=== PATIENT | male | born 1990 | race Caucasian/White ===

== ENCOUNTER 2016-07-12 17:57 | Emergency (ER) | payer BC ==
[2016-07-12] MEDS ORDERED: Ondansetron 4 MG/2 ML SDV IVPUSH ONE ×2 (18:28→20:56)
[2016-07-12] MEDS ORDERED: Sodium Chloride 0.9% 1,000 ML IV ONE ×2 (18:28→20:56)
[2016-07-12 19:05] LABS: CHLORIDE,CL 104 mmol/L (98-110); SODIUM,NA 139 mmol/L (136-146)
[2016-07-12] MEDS ORDERED: Ketorolac 30 MG/ML SDV IVPUSH ONE (19:07)
--- NOTE | 2016-07-12 19:48 | EDM.PDOC ---
ED HPI GI/ABDOMINAL - General Chief Complaint: Gastrointestinal Problem Stated Complaint: VOMITING/SICK Time Seen by Provider: 07/12/16 19:45 Source of Information: Reports: Patient History Limitations: Reports: No limitations - History of Present Illness INITIAL COMMENTS - FREE TEXT/NARRATIVE: History of present illness: [25-year-old male presents with low-grade fever or, nausea, vomiting, and also diarrhea. Patient indicates it has gotten progressively worse over the last 24 hours and he is concerned since he has a 11-day-old baby at home. Patient indicates he has a toddler who was sick approximately 10 days ago with similar symptoms.] Review of systems: As per history of present illness and below otherwise all systems reviewed and negative. Past medical history: As per history of present illness and as reviewed below otherwise noncontributory. Surgical history: As per history of present illness and as reviewed below otherwise noncontributory. Social history: No reported history of drug or alcohol abuse. Family history: As per history of present illness and as reviewed below otherwise noncontributory. Physical exam: HEENT: Atraumatic, normocephalic, pupils reactive, negative for conjunctival pallor or scleral icterus, mucous membranes moist, throat clear, neck supple, nontender, trachea midline. Lungs: Clear to auscultation, breath sounds equal bilaterally, chest nontender. Heart: S1S2, regular, negative for clicks, rubs, or JVD. Abdomen: Soft, nondistended, nontender. Negative for masses or hepatosplenomegaly. Negative for costovertebral tenderness. Pelvis: Stable nontender. Genitourinary: Deferred. Rectal: Deferred. Extremities: Atraumatic, negative for cords or calf pain. Neurovascular unremarkable. Neuro: Awake, alert, oriented. Cranial nerves II through XII unremarkable. Cerebellum unremarkable. Motor and sensory unremarkable throughout. Exam nonfocal. CT of abdomen negative, nasal swab negative, mild leukocytosis noted which would be consistent with a viral syndrome as well as signs and symptoms upon presentation Diagnostics: [CBC, CMP, CT of abdomen and pelvis, nasal swab] Therapeutics: [IV, Zofran, Toradol] Impression: [Viral syndrome] Plan: [] Definitive disposition and diagnosis as appropriate pending reevaluation and review of above. - Related Data Allergies/ADRs: Allergies Allergy/AdvReac Type Severity Reaction Status Date / Time No Known Allergies Allergy Verified 07/12/16 18:27 Home Meds: Home Meds Ondansetron HCl [Zofran] 8 mg PO TID #15 tablet 07/12/16 [Rx] Past Medical History - Past Health History Medical/Surgical History: Denies Medical/Surgical History HEENT History: Reports: Impaired vision, Other (see below) Other HEENT History: wears contact Cardiovascular History: Reports: None Respiratory History: Reports: None Gastrointestinal History: Reports: None Genitourinary History: Reports: None Musculoskeletal History: Reports: None Neurological History: Reports: Seizure Psychiatric History: Reports: None Endocrine/Metabolic History: Reports: None Hematologic History: Reports: None Immunologic History: Reports: None Oncologic (Cancer) History: Reports: None Dermatologic History: Reports: None - Infectious Disease History Infectious Disease History: Reports: Chicken pox - Past Surgical History Head Surgeries/Procedures: Reports: None Cardiovascular Surgical History: Reports: None GI Surgical History: Reports: Appendectomy, Hernia repair/other Endocrine Surgical History: Reports: None Other Musculoskeletal Surgeries/Procedures:: surgery on fxs of R shoulder and L wrist and R hand. 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[employer]) ED ROS GENERAL - Review of Systems Review Of Systems: See Below (See history of present illness) ED EXAM, GI/ABD - Physical Exam Exam: See Below (The history of present illness) Course - Vital Signs Last Recorded V/S: Last Vital Signs Temp 37.7 C 07/12/16 20:56 Pulse 85 07/12/16 20:56 Resp 16 07/12/16 20:56 BP 110/49 L 07/12/16 20:56 Pulse Ox 96 07/12/16 20:56 - Orders/Labs/Meds Orders: Active Orders 24 hr Category Date Time Status Abdomen Pelvis w Cont [CT] Stat Exams 07/12/16 19:44 Taken Sodium Chloride 0.9% [Normal Saline] 1,000 ml Med 07/12/16 20:56 Active IV .BOLUS Medication Orders Sodium Chloride (Normal Saline) 1,000 mls @ 999 mls/hr IV .BOLUS ONE Stop: 07/12/16 21:56 Last Admin: 07/12/16 21:00 Dose: 999 mls/hr Labs: Laboratory Tests 07/12/16 07/12/16 Range/Units 18:38 18:38 WBC 13.58 H (4.0-11.0) K/uL RBC 5.94 H (4.50-5.90) M/uL Hgb 17.1 H (13.0-17.0) g/dL Hct 48.4 (38.0-50.0) % MCV 81.5 (80.0-98.0) fL MCH 28.8 (27.0-32.0) pg MCHC 35.3 (31.0-37.0) g/dL RDW Std Deviation 40.9 (28.0-62.0) fl RDW Coeff of [place] 14 (11.0-15.0) % Plt Count 166 (150-400) K/uL MPV 10.20 (7.40-12.00) fL Neut % (Auto) 91.3 H (48.0-80.0) % Lymph % (Auto) 4.1 L (16.0-40.0) % [place] % (Auto) 3.8 (0.0-15.0) % Eos % (Auto) 0.6 (0.0-7.0) % Baso % (Auto) 0.2 (0.0-1.5) % Neut # 12.4 H (1.4-5.7) K/uL Lymph # 0.6 (0.6-2.4) K/uL [place] # 0.5 (0.0-0.8) K/uL Eos # 0.1 (0.0-0.7) K/uL Baso # 0.0 (0.0-0.1) K/uL Nucleated RBC % 0.0 /100WBC Nucleated RBCs # 0 K/uL Sodium 139 (136-146) mmol/L Potassium 4.2 (3.5-5.1) mmol/L Chloride 104 (98-110) mmol/L Carbon Dioxide 24 (21-31) mmol/L BUN 18 (6.0-23.0) mg/dL Creatinine 1.0 (0.6-1.5) mg/dL Est Cr Clr Drug Dosing 139.84 mL/min Estimated GFR (MDRD) > 60.0 ml/min Glucose 103 (60-110) mg/dL Calcium 10.0 (8.8-10.8) mg/dL Total Bilirubin 1.0 (0.1-1.5) mg/dL AST 63 H (5-40) IU/L ALT 52 (8-54) IU/L Alkaline Phosphatase 116 (40-150) Total Protein 8.6 H (6.0-8.0) g/dL Albumin 5.0 (3.5-5.0) g/dL Globulin 3.6 H (2.0-3.5) g/dL Albumin/Globulin Ratio 1.4 (1.3-2.8) Meds: Medications Generic Name Dose Route Start Last Admin Trade Name Freq PRN Reason Stop Dose Admin Sodium Chloride 1,000 mls @ 999 mls/hr 07/12/16 20:56 07/12/16 21:00 Normal Saline IV 07/12/16 21:56 999 mls/hr .BOLUS ONE Administration Discontinued Medications Generic Name Dose Route Start Last Admin Trade Name Freq PRN Reason Stop Dose Admin Sodium Chloride 1,000 mls @ 999 mls/hr 07/12/16 18:28 07/12/16 19:04 Normal Saline IV 07/12/16 19:28 999 mls/hr STAT ONE Administration Iopamidol 100 ml 07/12/16 20:37 07/12/16 20:38 Isovue-370 (76%) IV 07/12/16 20:38 100 ml ONETIME STA Administration Ketorolac Tromethamine 30 mg 07/12/16 19:07 07/12/16 19:16 Toradol IVPUSH 07/12/16 19:08 30 mg ONETIME ONE Administration Ondansetron HCl 8 mg 07/12/16 18:28 07/12/16 19:04 Zofran IVPUSH 07/12/16 18:29 8 mg ONETIME ONE Administration Ondansetron HCl 4 mg 07/12/16 20:56 07/12/16 21:02 Zofran IVPUSH 02/27/17 20:57 4 mg ONETIME ONE Administration Departure - Departure Time of Disposition: 21:20 Disposition: Home, Self-Care 01 Condition: good Clinical Impression: Gastroenteritis Prescriptions: Ondansetron HCl [Zofran] 8 mg PO TID #15 tablet Instructions: Viral Gastroenteritis, Adult, [id number] Forms: ED Department Discharge Additional Instructions: The following information is given to patients seen in the emergency department who are being discharged to home. This information is to outline your options for follow-up care. We provide all patients seen in our emergency department with a follow-up referral. The need for follow-up, as well as the timing and circumstances, are variable depending upon the specifics of your emergency department visit. If you don't have a primary care physician on staff, we will provide you with a referral. We always advise you to contact your personal physician following an emergency department visit to inform them of the circumstance of the visit and for follow-up with them and/or the need for any referrals to a consulting specialist. The emergency department will also refer you to a specialist when appropriate. This referral assures that you have the opportunity for follow-up care with a specialist. All of these measure are taken in an effort to provide you with optimal care, which includes your follow-up. Under all circumstances we always encourage you to contact your private physician who remains a resource for coordinating your care. When calling for follow-up care, please make the office aware that this follow-up is from your recent emergency room visit. If for any reason you are refused follow-up, please contact the [facility] Emergency Department at and asked to speak to the emergency department charge nurse. Followup the primary care provider one today Please take nausea medicine as needed please hydrate as possible Turned ED as needed as discussed - My Orders Last 24 Hours: My Active Orders 07/12/16 19:44 Abdomen Pelvis w Cont [CT] Stat 07/12/16 20:56 Sodium Chloride 0.9% [Normal Saline] 1,000 ml IV .BOLUS - Assessment/Plan Last 24 Hours: My Active Orders 07/12/16 19:44 Abdomen Pelvis w Cont [CT] Stat 07/12/16 20:56 Sodium Chloride 0.9% [Normal Saline] 1,000 ml IV .BOLUS
[2016-07-12] MEDS ORDERED: Iopamidol 755 MG/ML 50 ML Bottle IV STA (20:37)
[2016-07-12 21:40] VITALS: BP 136/66
--- NOTE | 2016-07-13 15:56 | CT ---
EXAM DATE: 07/12/16 PATIENT'S AGE: 25 Patient: MATTI ÁLVAREZ Facility: [place], [place] Site . Site : 1990 Study: CT Abdomen/Pelvis [id number] w/cont-07/12/2016 8:53:21 PM Ordering Physician: Doctor Garcia Final Report: INDICATION: Abdominal pain, Vomiting, Diarrhea. CT ABDOMEN AND PELVIS WITH CONTRAST TECHNIQUE: Multidetector CT imaging was performed through the abdomen and pelvis following intravenous contrast administration using 100mL Isovue 370. Coronal and sagittal reconstructions were generated. COMPARISON: 05/21/2014 CT abd/pelvis. FINDINGS: Included portions of the lower chest show the lung bases to be clear. The liver, spleen, gallbladder, pancreas, adrenals, and kidneys show no significant findings. Bowel loops are of normal caliber and demonstrate no definite wall thickening. The appendix is surgically absent. Mild prominence of the colon wall is felt due to nondistention. No free fluid or free air is identified. The abdominal aorta appears normal. No abnormally enlarged lymph nodes are seen. The urinary bladder, prostate, and seminal vesicles are within normal limits. Visualized bones show no significant findings. IMPRESSION: No acute abnormality identified. No cause for the patient`s symptoms is evident. NAJMA OSBORNE MD [employer] [facility] Dictated by: Scooby Osborne MD @ 07/12/2016 21:13:21 (Electronic Signature) Report Signed by Proxy and Original Signed Document filed in the Medical Record. MTDD
== END 2016-07-12 21:38 | disposition home or self-care (01) ==
LOC: MW.ED 17:57
DX: K52.9 Noninfective gastroenteritis and colitis, unspecified (principal); B34.9 Viral infection, unspecified; Z90.49 Acquired absence of other specified parts of digestive tract
CPT/HCPCS: 36415; 74177; 80053; 85025; 87804; 96361; 96374; 96376; 99284; J1885; J2405; J7040; Q9967

== ENCOUNTER 2016-10-19 14:58 | Emergency (ER) | payer BC ==
--- NOTE | 2016-10-19 16:11 | EDM.PDOC ---
ED HPI GENERAL MEDICAL PROBLEM - General Chief Complaint: Lower Extremity Injury/Pain Stated Complaint: ANKLE Time Seen by Provider: 10/19/16 16:10 Source of Information: Reports: Patient History Limitations: Reports: No Limitations - History of Present Illness INITIAL COMMENTS - FREE TEXT/NARRATIVE: HISTORY AND PHYSICAL: 26-year-old gentleman presents after having "rolled" his left ankle History of Present Illness: [This incident occurred 3 and half hours prior to coming to the ER today.] Review of Systems: As per history of present illness and below otherwise all systems reviewed and negative. Past medical history: As per history of present illness and as reviewed below otherwise noncontributory. Surgical history: As per history of present illness and as reviewed below otherwise noncontributory. Social history: No reported history of drug or alcohol abuse. Family history: As per history of present illness and as reviewed below otherwise noncontributory. Physical exam: Alert and oriented gentleman answering questions appropriately HEENT: Atraumatic, normocehpalic, pupils reactive, negative for conjunctival pallor or scleral icterus, mucous membranes moist, throat clear, neck supple, nontender, trachea midline. Lungs: Clear to auscultation, breath sounds equal bilaterally, chest non tender. Heart: S1S2, regular, negative for clicks, rubs, or JVD. Abdomen: Soft, nondistended, nontender. Negative for masses or hepatossplenmegaly. Negative for costovertebral tenderness. Pelvis: Stable nontender. Genitourinary: Deferred. Rectal: Deferred Extremities: Edema to the lateral malleolus on left ankle pulses are intact sensation intact, negative for cords or calf pain. Neurovascular unremarkable. Neuro: Awake, alert, oriented. Cranial nerves II through XII unremarkable. Cerebellum unremarkable. Motor and sensory unremarkable throughout. Exam nonfocal. Diagnostics: []X-ray left ankle with chip fracture of the taler dome Therapeutics: [walker boot / crutches] Impression: [Chip fracture of left taler dome] Plan: [walker boot / crutches Hydrocodone/APAP 5/325 1 tab tid prn pain #20] Definitive disposition and diagnosis as appropriate pending reevaluation and review of above. Onset: Today, Sudden Duration: Hour(s): (3-4) Location: Reports: Lower Extremity, Left Quality: Reports: Ache, Throbbing Severity: Moderate Improves with: Reports: Cold Therapy Context: Reports: Activity (Rolled his ankle) Left Ankle Pain Score (Numeric/FACES): 8 - Related Data Allergies Allergy/AdvReac Type Severity Reaction Status Date / Time No Known Allergies Allergy Verified 07/12/16 18:27 Past Medical History - Past Health History Medical/Surgical History: Denies Medical/Surgical History HEENT History: Reports: Impaired Vision, Other (See Below) Other HEENT History: wears contact Cardiovascular History: Reports: None Respiratory History: Reports: None Gastrointestinal History: Reports: None Genitourinary History: Reports: None Musculoskeletal History: Reports: None Neurological History: Reports: Seizure Psychiatric History: Reports: None Endocrine/Metabolic History: Reports: None Hematologic History: Reports: None Immunologic History: Reports: None Oncologic (Cancer) History: Reports: None Dermatologic History: Reports: None - Infectious Disease History Infectious Disease History: Reports: Chicken Pox - Past Surgical History Head Surgeries/Procedures: Reports: None Cardiovascular Surgical History: Reports: None GI Surgical History: Reports: Appendectomy, Hernia, Inguinal, Hernia Repair/ Other Endocrine Surgical History: Reports: None Other Musculoskeletal Surgeries/Procedures:: surgery on fxs of R shoulder and L wrist and R hand. knee scope when he was 10 y.o Social & Family History - Family History Family Medical History: Noncontributory Neurological: Reports: Seizure - Tobacco Use Smoking Status *Q: Never Smoker Second Hand Smoke Exposure: No - Alcohol Use Days Per Week of Alcohol Use: 4 Number of Drinks Per Day: 2 Total Drinks Per Week: 8 - Recreational Drug Use Recreational Drug Use: No - Living Situation & Occupation Living situation: Reports: with Significant Other Occupation: Employed Review of Systems - Review of Systems Review Of Systems: ROS reveals no pertinent complaints other than HPI. ED EXAM, GENERAL - Physical Exam Exam: See Below Course - Vital Signs Last Recorded V/S: Last Vital Signs Temp 36.6 C 10/19/16 15:55 Pulse 67 10/19/16 15:55 Resp 18 10/19/16 15:55 BP 127/97 H 10/19/16 15:55 Pulse Ox - Orders/Labs/Meds Orders: Active Orders 24 hr Category Date Time Status Cooling Warming Measures [RC] ASDIRECTED Care 10/19/16 16:09 Active Splinting [RC] ASDIRECTED Care 10/19/16 16:46 Ordered Ice Pack [Ice Therapy] [OM.PC] Stat Oth 10/19/16 16:09 Ordered Departure - Departure Time of Disposition: 16:53 Disposition: Home, Self-Care 01 Condition: good Clinical Impression: Fracture of ankle, left, closed Qualifiers: Encounter type: initial encounter Qualified Code(s): S82.892A - Other fracture of left lower leg, initial encounter for closed fracture - Discharge Information Instructions: Cast or Splint Care, [id number], Pain Medicine Instructions, [id number] Referrals: PCP,None [Primary Care Provider] - Rashmi Marsh MD [Physician] - Forms: ED Department Discharge Additional Instructions: The following information is given to patients seen in the emergency department who are being discharged to home. This information is to outline your options for follow-up care. We provide all patients seen in our emergency department with a follow-up referral. The need for follow-up, as well as the timing and circumstances, are variable depending upon the specifics of your emergency department visit. If you don't have a primary care physician on staff, we will provide you with a referral. We always advise you to contact your personal physician following an emergency department visit to inform them of the circumstance of the visit and for follow-up with them and/or the need for any referrals to a consulting specialist. The emergency department will also refer you to a specialist when appropriate. This referral assures that you have the opportunity for followup care with a specialist. All of these measure are taken in an effort to provide you with optimal care, which includes your followup. Under all circumstances we always encourage you to contact your private physician who remains a resource for coordinating your care. When calling for followup care, please make the office aware that this follow-up is from your recent emergency room visit. If for any reason you are refused follow-up, please contact the [facility] emergency department at and asked to speak to the emergency department charge nurse. Elevate and ice No weightbearing for 24 hours then minimal weightbearing use crutches Prescription was written for hydrocodone/APAP 5/325 one tablet 3 times a day when necessary pain #20 no refill Referral has been made to Dr. Rashmi Marsh [facility] [address] [place] [address] - My Orders Last 24 Hours: My Active Orders 10/19/16 16:09 Cooling Warming Measures [RC] ASDIRECTED Ice Pack [Ice Therapy] [OM.PC] Stat 10/19/16 16:46 Splinting [RC] ASDIRECTED - Assessment/Plan Last 24 Hours: My Active Orders 10/19/16 16:09 Cooling Warming Measures [RC] ASDIRECTED Ice Pack [Ice Therapy] [OM.PC] Stat 10/19/16 16:46 Splinting [RC] ASDIRECTED
--- NOTE | 2016-10-19 16:31 | CR ---
EXAMINATION: Left ankle HISTORY: Pain COMPARISON: None TECHNIQUE: 3 views FINDINGS/IMPRESSION: There is a nondisplaced chip fracture involving the lateral aspect of the talar dome. The remaining osseous structures and joint spaces appear intact with normal bone mineralizati on. Moderate soft tissue swelling overlies the lateral malleolus and dorsal aspect of the ankle.
[2016-10-19 17:28] VITALS: BP 125/87
== END 2016-10-19 17:23 | disposition home or self-care (01) ==
LOC: MW.ED 14:58
DX: S92.145A Nondisplaced dome fracture of left talus, initial encounter for closed fracture (principal); X50.9XXA Other and unspecified overexertion or strenuous movements or postures, initial encounter; Z90.49 Acquired absence of other specified parts of digestive tract; Z98.890 Other specified postprocedural states
CPT/HCPCS: 73610-26-LT; 73610-LT; 99283

== ENCOUNTER 2016-12-13 13:32 | Emergency (ER) | payer BC ==
--- NOTE | 2016-12-13 14:15 | EDM.PDOC ---
ED HPI GENERAL MEDICAL PROBLEM - General Chief Complaint: Neurological Problem Stated Complaint: SEIZURE Time Seen by Provider: 12/13/16 13:55 Source of Information: Reports: Patient History Limitations: Reports: No Limitations - History of Present Illness INITIAL COMMENTS - FREE TEXT/NARRATIVE: HISTORY AND PHYSICAL: History of present illness: [pt comes to the ER post-ictal. States that he was at work about 1 hour ago when he experienced a seizure. Has a known seizure disorder which he has been seen for several times in this emergency room. He has been out of his Keppra for the past 2-3 weeks, and is due for follow-up with Dr. Wright. Today he was up in a bucket approximately 75 feet the air when he experienced his seizure. This was witnessed by several coworkers on the ground. When patient woke up he was looking through the grades of the truck onto the ground. This is made him feel anxious that he may experience a seizure and hurt himself seriously. Postictal symptoms are consistent with healing tired, heaviness in his extremities, and having had bladder incontinence. He has no other complaints or concerns today. Denies fever, chills, chest pain shortness of breath difficulty breathing abdominal pain nausea and vomiting.] Review of systems: As per history of present illness and below otherwise all systems reviewed and negative. Past medical history: As per history of present illness and as reviewed below otherwise noncontributory. Surgical history: As per history of present illness and as reviewed below otherwise noncontributory. Social history: No reported history of drug or alcohol abuse. Family history: As per history of present illness and as reviewed below otherwise noncontributory. Physical exam: HEENT: Atraumatic, normocephalic. PERRLA. EOMI. No nystagmus. Oral mucous membranes moist, throat clear. Neck supple. Lungs: Clear to auscultation, breath sounds equal bilaterally. Heart: S1S2, regular rate and rhythm.. Abdomen: Soft, nondistended, nontender. Negative for costovertebral tenderness. Pelvis: Stable nontender. Genitourinary: Deferred. Rectal: Deferred. Extremities: Atraumatic, negative for cords or calf pain. Strength is 4-5 and equal bilaterally to upper and lower extremities. Neurovascular unremarkable. Neuro: Awake, alert, oriented. Cranial nerves II through XII unremarkable. Motor and sensory unremarkable throughout. Exam nonfocal. Impression: [Seizure disorder] Plan: [Patient is given a prescription for Keppra 500 mg #180 sig 3 tabs by mouth twice a day 0 refills, follow-up with Dr. Wright in the next couple of weeks for your regular 6 month checkup. He is in agreement with today's plan. All of his questions are answered and concerns are addressed.] Definitive disposition and diagnosis as appropriate pending reevaluation and review of above. - Related Data Allergies Allergy/AdvReac Type Severity Reaction Status Date / Time No Known Allergies Allergy Verified 07/12/16 18:27 Home Meds: Home Meds levETIRAcetam [Keppra] 1,500 mg PO BID 12/13/16 [History] levETIRAcetam [Keppra] 1,500 mg PO BID #180 tablet 12/13/16 [Rx] Past Medical History - Past Health History Medical/Surgical History: Denies Medical/Surgical History HEENT History: Reports: Impaired Vision, Other (See Below) Other HEENT History: wears contact Cardiovascular History: Reports: None Respiratory History: Reports: None Gastrointestinal History: Reports: None Genitourinary History: Reports: None Musculoskeletal History: Reports: None Neurological History: Reports: Seizure Psychiatric History: Reports: None Endocrine/Metabolic History: Reports: None Hematologic History: Reports: None Immunologic History: Reports: None Oncologic (Cancer) History: Reports: None Dermatologic History: Reports: None - Infectious Disease History Infectious Disease History: Reports: Chicken Pox - Past Surgical History Head Surgeries/Procedures: Reports: None Cardiovascular Surgical History: Reports: None GI Surgical History: Reports: Appendectomy, Hernia, Inguinal, Hernia Repair/ Other Endocrine Surgical History: Reports: None Other Musculoskeletal Surgeries/Procedures:: surgery on fxs of R shoulder and L wrist and R hand. knee scope when he was 10 y.o Social & Family History - Family History Family Medical History: Noncontributory Neurological: Reports: Seizure - Tobacco Use Smoking Status *Q: Never Smoker Second Hand Smoke Exposure: No - Caffeine Use Caffeine Use: Reports: Energy Drinks - Alcohol Use Days Per Week of Alcohol Use: 4 Number of Drinks Per Day: 2 Total Drinks Per Week: 8 - Recreational Drug Use Recreational Drug Use: No - Living Situation & Occupation Living situation: Reports: with Significant Other Occupation: Employed ED ROS GENERAL - Review of Systems Review Of Systems: ROS reveals no pertinent complaints other than HPI. - Physical Exam Exam: See Below Course - Vital Signs Last Recorded V/S: Last Vital Signs Temp 97.4 F 12/13/16 13:53 Pulse 90 12/13/16 14:42 Resp 15 12/13/16 14:42 BP 135/69 12/13/16 14:42 Pulse Ox 97 12/13/16 14:42 Departure - Departure Time of Disposition: 14:30 Disposition: Home, Self-Care 01 Condition: Good Clinical Impression: Seizure - Discharge Information Prescriptions: levETIRAcetam [Keppra] 1,500 mg PO BID #180 tablet Instructions: Seizure, Adult, [id number] Referrals: PCP,None [Primary Care Provider] - Forms: ED Department Discharge Additional Instructions: The following information is given to patients seen in the emergency department who are being discharged to home. This information is to outline your options for follow-up care. We provide all patients seen in our emergency department with a follow-up referral. The need for follow-up, as well as the timing and circumstances, are variable depending upon the specifics of your emergency department visit. If you don't have a primary care physician on staff, we will provide you with a referral. We always advise you to contact your personal physician following an emergency department visit to inform them of the circumstance of the visit and for follow-up with them and/or the need for any referrals to a consulting specialist. The emergency department will also refer you to a specialist when appropriate. This referral assures that you have the opportunity for follow-up care with a specialist. All of these measure are taken in an effort to provide you with optimal care, which includes your follow-up. Under all circumstances we always encourage you to contact your private physician who remains a resource for coordinating your care. When calling for follow-up care, please make the office aware that this follow-up is from your recent emergency room visit. If for any reason you are refused follow-up, please contact the [facility] emergency department at and asked to speak to the emergency department charge nurse. [facility] Specialty care- [facility] [address] [place] [address], [address] [place] [address] Wright in the next couple of weeks. Do not run out of your Keppra, and do not miss any doses. Return to ER as needed as discussed.
[2016-12-13 14:45] VITALS: BP 135/69
== END 2016-12-13 14:42 | disposition home or self-care (01) ==
LOC: MW.ED 13:32
DX: G40.909 Epilepsy, unspecified, not intractable, without status epilepticus (principal); Z90.49 Acquired absence of other specified parts of digestive tract
CPT/HCPCS: 99282

== ENCOUNTER 2017-01-07 12:53 | Emergency (ER) | payer BC ==
[2017-01-07] MEDS ORDERED: Bupivacaine 0.25% 10 ML SDV INJECT ONE (13:07)
--- NOTE | 2017-01-07 13:27 | EDM.PDOC ---
ED HPI GENERAL MEDICAL PROBLEM - General Chief Complaint: Lower Extremity Injury/Pain Stated Complaint: BIG TOE ON RT FOOT HURTS Time Seen by Provider: 01/07/17 12:57 - History of Present Illness INITIAL COMMENTS - FREE TEXT/NARRATIVE: HISTORY AND PHYSICAL: History of present illness: Patient 26-year-old white male presents with concern of ingrown toenail first digit of his right foot has been worse over the last several weeks particularly last several days he denies any other concern Review of systems: As per history of present illness and below otherwise all systems reviewed and negative. Past medical history: As per history of present illness and as reviewed below otherwise noncontributory. Surgical history: As per history of present illness and as reviewed below otherwise noncontributory. Social history: No reported history of drug or alcohol abuse. Family history: As per history of present illness and as reviewed below otherwise noncontributory. Physical exam: HEENT: Atraumatic, normocephalic, pupils reactive, negative for conjunctival pallor or scleral icterus, mucous membranes moist, throat clear, neck supple, nontender, trachea midline. Lungs: Clear to auscultation, breath sounds equal bilaterally, chest nontender. Heart: S1S2, regular, negative for clicks, rubs, or JVD. Abdomen: Soft, nondistended, nontender. Negative for masses or hepatosplenomegaly. Negative for costovertebral tenderness. Pelvis: Stable nontender. Genitourinary: Deferred. Rectal: Deferred. Extremities: Patient has a swelling erythema and obvious ingrown toenail involving the lateral aspect of the first digit. There is also evidence of tinea pedis. Neuro: Awake, alert, oriented. Cranial nerves II through XII unremarkable. Cerebellum unremarkable. Motor and sensory unremarkable throughout. Exam nonfocal. Diagnostics: None Therapeutics: Patient was anesthetized via digital block with 0.5% Marcaine this wound was soaked irrigated and the medial third of the nail of the first digit was removed in its entirety. Wound was irrigated and dressed with bacitracin and occlusive dressing. Impression: #1 ingrown toenail status post excision Definitive disposition and diagnosis as appropriate pending reevaluation and review of above. R Great Toe Pain Score (Numeric/FACES): 6 - Related Data Allergies Allergy/AdvReac Type Severity Reaction Status Date / Time No Known Allergies Allergy Verified 01/07/17 13:07 Home Meds: Home Meds levETIRAcetam [Keppra] 1,500 mg PO BID #180 tablet 12/13/16 [Rx] Past Medical History - Past Health History Medical/Surgical History: Denies Medical/Surgical History HEENT History: Reports: Impaired Vision, Other (See Below) Other HEENT History: wears contact Cardiovascular History: Reports: None Respiratory History: Reports: None Gastrointestinal History: Reports: None Genitourinary History: Reports: None Musculoskeletal History: Reports: Fracture Neurological History: Reports: Seizure Psychiatric History: Reports: None Endocrine/Metabolic History: Reports: None Hematologic History: Reports: None Immunologic History: Reports: None Oncologic (Cancer) History: Reports: None Dermatologic History: Reports: None - Infectious Disease History Infectious Disease History: Reports: Chicken Pox - Past Surgical History Head Surgeries/Procedures: Reports: None Cardiovascular Surgical History: Reports: None GI Surgical History: Reports: Appendectomy, Hernia, Inguinal, Hernia Repair/ Other Endocrine Surgical History: Reports: None Other Musculoskeletal Surgeries/Procedures:: surgery on fxs of R shoulder and L wrist and R hand. knee scope when he was 10 y.o Social & Family History - Family History Family Medical History: Noncontributory Neurological: Reports: Seizure - Tobacco Use Smoking Status *Q: Never Smoker Second Hand Smoke Exposure: No - Caffeine Use Caffeine Use: Reports: Energy Drinks - Alcohol Use Days Per Week of Alcohol Use: 4 Number of Drinks Per Day: 2 Total Drinks Per Week: 8 - Recreational Drug Use Recreational Drug Use: No - Living Situation & Occupation Living situation: Reports: with Significant Other Occupation: Employed Review of Systems - Review of Systems Review Of Systems: ROS reveals no pertinent complaints other than HPI. ED EXAM, GENERAL - Physical Exam Exam: See Below (See dictation) Course - Vital Signs Last Recorded V/S: Last Vital Signs Temp 36.6 C 01/07/17 13:10 Pulse 95 01/07/17 13:10 Resp 18 01/07/17 13:10 BP 147/66 H 01/07/17 13:10 Pulse Ox 94 L 01/07/17 13:10 - Orders/Labs/Meds Meds: Medications Discontinued Medications Generic Name Dose Route Start Last Admin Trade Name Freq PRN Reason Stop Dose Admin Bupivacaine HCl 10 ml 01/07/17 13:07 Sensorcaine-Mpf 0.25% INJECT 01/07/17 13:08 ONETIME ONE Departure - Departure Time of Disposition: 13:26 Disposition: Home, Self-Care 01 Condition: Good Clinical Impression: Ingrown toenail - Discharge Information Referrals: PCP,None [Primary Care Provider] - Additional Instructions: The following information is given to patients seen in the emergency department who are being discharged to home. This information is to outline your options for follow-up care. We provide all patients seen in our emergency department with a follow-up referral. The need for follow-up, as well as the timing and circumstances, are variable depending upon the specifics of your emergency department visit. If you don't have a primary care physician on staff, we will provide you with a referral. We always advise you to contact your personal physician following an emergency department visit to inform them of the circumstance of the visit and for follow-up with them and/or the need for any referrals to a consulting specialist. The emergency department will also refer you to a specialist when appropriate. This referral assures that you have the opportunity for followup care with a specialist. All of these measure are taken in an effort to provide you with optimal care, which includes your followup. Under all circumstances we always encourage you to contact your private physician who remains a resource for coordinating your care. When calling for followup care, please make the office aware that this follow-up is from your recent emergency room visit. If for any reason you are refused follow-up, please contact the [facility] emergency department at and asked to speak to the emergency department charge nurse. Follow-up podiatry Keflex as prescribed Lerna as prescribed soak toe 3 times daily as discussed with soap and water dressing changes 3 times a day also return as needed as discussed
[2017-01-07] MEDS ORDERED: Lidocaine 1% 20 ML MDV ONE (13:33)
[2017-01-07] MEDS ORDERED: Lidocaine 1% 20 ML MDV INJECT ONE (13:34)
[2017-01-07 14:03] VITALS: BP 153/69
== END 2017-01-07 14:28 | disposition home or self-care (01) ==
LOC: MW.ED 12:53
DX: L60.0 Ingrowing nail (principal)
CPT/HCPCS: 11750; 99282; 99283

== ENCOUNTER 2017-06-17 03:23 | Emergency (ER) | payer BC ==
--- NOTE | 2017-06-17 04:01 | EDM.PDOC ---
ED HPI GENERAL MEDICAL PROBLEM - General Chief Complaint: ENT Problem Stated Complaint: MOUTH SORES Time Seen by Provider: 06/17/17 03:58 Source of Information: Reports: Patient - History of Present Illness INITIAL COMMENTS - FREE TEXT/NARRATIVE: HISTORY AND PHYSICAL: History of present illness: [Patient presents with sore throat since Tuesday, he was seen at [facility] and placed on amoxicillin twice daily at that time he has persistent sore throat Difficulty with solid food no difficulty with liquid no muffled voice potato voice trismus or drooling ] Review of systems: As per history of present illness and below otherwise all systems reviewed and negative. Past medical history: As per history of present illness and as reviewed below otherwise noncontributory. Surgical history: As per history of present illness and as reviewed below otherwise noncontributory. Social history: No reported history of drug or alcohol abuse. Family history: As per history of present illness and as reviewed below otherwise noncontributory. Physical exam: HEENT: Atraumatic, normocephalic, pupils reactive, negative for conjunctival pallor or scleral icterus, mucous membranes moist, throat clear, neck supple, nontender, trachea midline. Thrush appearance of oropharynx and uvula there is no swelling or airway compromise no stridor no meningeal sign Lungs: Clear to auscultation, breath sounds equal bilaterally, chest nontender. Heart: S1S2, regular, negative for clicks, rubs, or JVD. Abdomen: Soft, nondistended, nontender. Negative for masses or hepatosplenomegaly. Negative for costovertebral tenderness. Pelvis: Stable nontender. Genitourinary: Deferred. Rectal: Deferred. Extremities: Atraumatic, negative for cords or calf pain. Neurovascular unremarkable. Neuro: Awake, alert, oriented. Cranial nerves II through XII unremarkable. Cerebellum unremarkable. Motor and sensory unremarkable throughout. Exam nonfocal. Diagnostics: [Rapid strep] Therapeutics: [Patient currently on amoxicillin Nystatin swish and swallow ] Impression: [Pharyngitis Thrush is a consideration] Definitive disposition and diagnosis as appropriate pending reevaluation and review of above. mouth Pain Score (Numeric/FACES): 9 - Related Data Allergies Allergy/AdvReac Type Severity Reaction Status Date / Time No Known Allergies Allergy Verified 06/17/17 03:41 Home Meds: Home Meds levETIRAcetam [Keppra] 1,500 mg PO BID #180 tablet 12/13/16 [Rx] Past Medical History - Past Health History Medical/Surgical History: Denies Medical/Surgical History HEENT History: Reports: Impaired Vision, Other (See Below) Other HEENT History: wears contact Cardiovascular History: Reports: None Respiratory History: Reports: None Gastrointestinal History: Reports: None Genitourinary History: Reports: None Musculoskeletal History: Reports: Fracture Neurological History: Reports: Seizure Psychiatric History: Reports: None Endocrine/Metabolic History: Reports: None Hematologic History: Reports: None Immunologic History: Reports: None Oncologic (Cancer) History: Reports: None Dermatologic History: Reports: None - Infectious Disease History Infectious Disease History: Reports: None - Past Surgical History Head Surgeries/Procedures: Reports: None Cardiovascular Surgical History: Reports: None GI Surgical History: Reports: Appendectomy, Hernia, Inguinal, Hernia Repair/ Other Endocrine Surgical History: Reports: None Other Musculoskeletal Surgeries/Procedures:: surgery on fxs of R shoulder and L wrist and R hand. knee scope when he was 10 y.o Social & Family History - Family History Family Medical History: Noncontributory Neurological: Reports: Seizure - Tobacco Use Smoking Status *Q: Never Smoker Second Hand Smoke Exposure: No - Caffeine Use Caffeine Use: Reports: None - Alcohol Use Days Per Week of Alcohol Use: 4 Number of Drinks Per Day: 2 Total Drinks Per Week: 8 - Recreational Drug Use Recreational Drug Use: No - Living Situation & Occupation Living situation: Reports: with Significant Other Occupation: Employed ED ROS GENERAL - Review of Systems Review Of Systems: ROS reveals no pertinent complaints other than HPI. ED EXAM, GENERAL - Physical Exam Exam: See Below Course - Vital Signs Last Recorded V/S: Last Vital Signs Temp 97.9 F 06/17/17 03:34 Pulse 65 06/17/17 03:34 Resp 19 06/17/17 03:34 BP 128/80 06/17/17 03:34 Pulse Ox 97 06/17/17 03:34 - Orders/Labs/Meds Orders: Active Orders 24 hr Category Date Time Status STREP SCRN A RAPID W CULT CONF [RM] Stat Lab 06/17/17 03:51 Uncollected Departure - Departure Time of Disposition: 04:00 Disposition: Home, Self-Care 01 Condition: Good Clinical Impression: Pharyngitis, Thrush, oral - Discharge Information Referrals: PCP,None [Primary Care Provider] - Additional Instructions: Continue current medication Medication as prescribed Return if symptoms persist or worsen Follow-up with primary care in 2 weeks sooner as needed [facility] - Primary Care [address] [place] [id number] The following information is given to patients seen in the emergency department who are being discharged to home. This information is to outline your options for follow-up care. We provide all patients seen in our emergency department with a follow-up referral. The need for follow-up, as well as the timing and circumstances, are variable depending upon the specifics of your emergency department visit. If you don't have a primary care physician on staff, we will provide you with a referral. We always advise you to contact your personal physician following an emergency department visit to inform them of the circumstance of the visit and for follow-up with them and/or the need for any referrals to a consulting specialist. The emergency department will also refer you to a specialist when appropriate. This referral assures that you have the opportunity for follow-up care with a specialist. All of these measure are taken in an effort to provide you with optimal care, which includes your follow-up. Under all circumstances we always encourage you to contact your private physician who remains a resource for coordinating your care. When calling for follow-up care, please make the office aware that this follow-up is from your recent emergency room visit. If for any reason you are refused follow-up, please contact the emergency department at and asked to speak to the emergency department charge nurse. - My Orders Last 24 Hours: My Active Orders 06/17/17 03:51 STREP SCRN A RAPID W CULT CONF [RM] Stat - Assessment/Plan Last 24 Hours: My Active Orders 06/17/17 03:51 STREP SCRN A RAPID W CULT CONF [RM] Stat
[2017-06-17] MEDS ORDERED: Lidocaine 2% Viscous Solution 100 ML Bottle PO ONE (04:31)
[2017-06-17] MEDS ORDERED: Nystatin Susp 100,000 Unit/ML 5 ML UD Cup PO ONE (04:32)
[2017-06-17] MEDS ORDERED: Lidocaine 2% Viscous Solution 15 ML Cup PO ONE (04:33)
[2017-06-17 04:54] VITALS: BP 119/71
== END 2017-06-17 04:56 | disposition home or self-care (01) ==
LOC: MW.ED 03:23
DX: J02.9 Acute pharyngitis, unspecified (principal); B37.0 Candidal stomatitis
CPT/HCPCS: 87081; 87880; 99283; A9270; 99282

== ENCOUNTER 2017-08-02 21:05 | Emergency (ER) | payer BC ==
[2017-08-02] MEDS ORDERED: Sodium Chloride 0.9% 2.5 ML Syringe FLUSH PRN (21:28)
[2017-08-02] MEDS ORDERED: Sodium Chloride 0.9% 10 ML Syringe FLUSH PRN (21:28)
[2017-08-02] MEDS ORDERED: Sodium Chloride 0.9% 1,000 ML IV ONE (21:29)
[2017-08-02] MEDS ORDERED: Ondansetron 4 MG/2 ML SDV IVPUSH ONE (21:30)
[2017-08-02] MEDS ORDERED: Morphine 2 MG/ML Syringe IVPUSH ONE (21:30)
[2017-08-02] MEDS ORDERED: Ketorolac 30 MG/ML SDV IVPUSH ONE (21:32)
--- NOTE | 2017-08-02 21:36 | EDM.PDOC ---
ED HPI GENERAL MEDICAL PROBLEM - General Chief Complaint: Abdominal Pain Stated Complaint: STOMACH PAIN Time Seen by Provider: 08/02/17 21:29 Source of Information: Reports: Patient History Limitations: Reports: No Limitations - History of Present Illness INITIAL COMMENTS - FREE TEXT/NARRATIVE: HISTORY AND PHYSICAL: []26-year-old male presenting with right upper quadrant pain today History of Present Illness: []Patient relates one episode of vomiting pain has increased throughout the day Review of records has identified one year ago similar episode of abdominal pain with nausea vomiting he has had appendectomy Patient reports normal bowel function today Review of Systems: As per history of present illness and below otherwise all systems reviewed and negative. Past medical history: As per history of present illness and as reviewed below otherwise noncontributory. Surgical history: As per history of present illness and as reviewed below otherwise noncontributory. Social history: No reported history of drug or alcohol abuse. Family history: As per history of present illness and as reviewed below otherwise noncontributory. Physical exam: Alert and oriented male answering questions appropriately in full sentences without any shortness of breath skin is warm and dry has good affect and eye contact. HEENT: Atraumatic, normocehpalic, pupils reactive, negative for conjunctival pallor or scleral icterus, mucous membranes moist, throat clear, neck supple, nontender, trachea midline. Lungs: Clear to auscultation, breath sounds equal bilaterally, chest non tender. Heart: S1S2, regular, negative for clicks, rubs, or JVD. Abdomen: Soft, nondistended, tender to palpation of the right upper quadrant. Right lower quadrant has no rebound and no guarding Negative for masses or hepatossplenmegaly. Negative for costovertebral tenderness. Pelvis: Stable nontender. Genitourinary: Deferred. Rectal: Deferred Extremities: Atraumatic, negative for cords or calf pain. Neurovascular unremarkable. Neuro: Awake, alert, oriented. Cranial nerves II through XII unremarkable. Cerebellum unremarkable. Motor and sensory unremarkable throughout. Exam nonfocal. Diagnostics: [CBC CMP amylase lipase CXR abdominal US Therapeutics: [1 L of fluids Toradol Zofran] Impression: [#1 abdominal pain #2 nausea and vomiting] Plan: []Discharged to home Surgical follow-up Pepcid by mouth 20 mg twice a day Zofran ODT 4 mg Definitive disposition and diagnosis as appropriate pending reevaluation and review of above. Onset: Today, Sudden Duration: Hour(s):, Getting Worse Location: Reports: Abdomen Quality: Reports: Sharp, Throbbing Severity: Moderate Improves with: Reports: None Worsens with: Reports: None Associated Symptoms: Reports: Nausea/Vomiting RUQ Abdomen Pain Score (Numeric/FACES): 9 - Related Data Allergies Allergy/AdvReac Type Severity Reaction Status Date / Time No Known Allergies Allergy Verified 08/02/17 21:20 Home Meds: Home Meds levETIRAcetam [Keppra] 1,500 mg PO BID #180 tablet 12/13/16 [Rx] Famotidine [Pepcid] 20 mg PO BID #20 tab 08/02/17 [Rx] Ondansetron [Zofran ODT] 4 mg PO Q6H PRN #12 tab.dis 08/02/17 [Rx] Past Medical History - Past Health History Medical/Surgical History: Denies Medical/Surgical History HEENT History: Reports: Impaired Vision, Other (See Below) Other HEENT History: wears contact Cardiovascular History: Reports: None Respiratory History: Reports: None Gastrointestinal History: Reports: None Genitourinary History: Reports: None Musculoskeletal History: Reports: Fracture Neurological History: Reports: Seizure Psychiatric History: Reports: None Endocrine/Metabolic History: Reports: None Hematologic History: Reports: None Immunologic History: Reports: None Oncologic (Cancer) History: Reports: None Dermatologic History: Reports: None - Infectious Disease History Infectious Disease History: Reports: None - Past Surgical History Head Surgeries/Procedures: Reports: None Cardiovascular Surgical History: Reports: None GI Surgical History: Reports: Appendectomy, Hernia, Inguinal, Hernia Repair/ Other Endocrine Surgical History: Reports: None Musculoskeletal Surgical History: Reports: Other (See Below) Other Musculoskeletal Surgeries/Procedures:: surgery on fxs of R shoulder and L wrist and R hand. knee scope when he was 10 y.o;. Collar bone sx Social & Family History - Family History Family Medical History: Noncontributory Neurological: Reports: Seizure - Tobacco Use Smoking Status *Q: Never Smoker Second Hand Smoke Exposure: No - Caffeine Use Caffeine Use: Reports: None - Alcohol Use Days Per Week of Alcohol Use: 4 Number of Drinks Per Day: 2 Total Drinks Per Week: 8 - Recreational Drug Use Recreational Drug Use: No - Living Situation & Occupation Living situation: Reports: with Significant Other Occupation: Employed ED ROS GENERAL - Review of Systems Review Of Systems: ROS reveals no pertinent complaints other than HPI. ED EXAM, GI/ABD - Physical Exam Exam: See Below (see dictation) Course - Vital Signs Last Recorded V/S: Last Vital Signs Temp 36.6 C 08/02/17 21:05 Pulse 79 08/02/17 21:05 Resp 18 08/02/17 21:05 BP 119/62 08/02/17 21:05 Pulse Ox 98 08/02/17 21:05 - Orders/Labs/Meds Orders: Active Orders 24 hr Category Date Time Status Abdomen Ltd [US] Stat Exams 08/02/17 21:31 Ordered Chest 2V [CR] Stat Exams 08/02/17 21:29 Ordered AMYLASE [CHEM] Stat Lab 08/02/17 21:37 Received COMPREHENSIVE METABOLIC PN,CMP [CHEM] Stat Lab 08/02/17 21:37 Received CULTURE URINE [RM] Stat Lab 08/02/17 21:35 Received LIPASE [CHEM] Stat Lab 08/02/17 21:37 Received UA W/MICROSCOPIC [URIN] Stat Lab 08/02/17 21:35 Received Sodium Chloride 0.9% [Normal Saline] 1,000 ml Med 08/02/17 21:29 Active IV STAT Sodium Chloride 0.9% [Saline Flush] Med 08/02/17 21:28 Active 10 ml FLUSH ASDIRECTED PRN Sodium Chloride 0.9% [Saline Flush] Med 08/02/17 21:28 Active 2.5 ml FLUSH ASDIRECTED PRN Saline Lock Insert [OM.PC] Stat Oth 08/02/17 21:28 Ordered Medication Orders Sodium Chloride (Normal Saline) 1,000 mls @ 999 mls/hr IV STAT ONE Stop: 08/02/17 22:29 Last Admin: 08/02/17 21:39 Dose: 999 mls/hr Sodium Chloride (Saline Flush) 10 ml FLUSH ASDIRECTED PRN PRN Reason: Keep Vein Open Sodium Chloride (Saline Flush) 2.5 ml FLUSH ASDIRECTED PRN PRN Reason: Keep Vein Open Labs: Laboratory Tests 08/02/17 Range/Units 21:37 WBC 8.64 (4.0-11.0) K/uL RBC 5.43 (4.50-5.90) M/uL Hgb 16.0 (13.0-17.0) g/dL Hct 45.2 (38.0-50.0) % MCV 83.2 (80.0-98.0) fL MCH 29.5 (27.0-32.0) pg MCHC 35.4 (31.0-37.0) g/dL RDW Std Deviation 40.8 (28.0-62.0) fl RDW Coeff of [place] 14 (11.0-15.0) % Plt Count 192 (150-400) K/uL MPV 10.20 (7.40-12.00) fL Neut % (Auto) 45.5 L (48.0-80.0) % Lymph % (Auto) 44.3 H (16.0-40.0) % [place] % (Auto) 7.8 (0.0-15.0) % Eos % (Auto) 2.1 (0.0-7.0) % Baso % (Auto) 0.3 (0.0-1.5) % Neut # (Auto) 3.9 (1.4-5.7) K/uL Lymph # (Auto) 3.8 H (0.6-2.4) K/uL [place] # (Auto) 0.7 (0.0-0.8) K/uL Eos # (Auto) 0.2 (0.0-0.7) K/uL Baso # (Auto) 0.0 (0.0-0.1) K/uL Nucleated RBC % 0.0 /100WBC Nucleated RBCs # 0 K/uL Meds: Medications Generic Name Dose Route Start Last Admin Trade Name Freq PRN Reason Stop Dose Admin Sodium Chloride 1,000 mls @ 999 mls/hr 08/02/17 21:29 08/02/17 21:39 Normal Saline IV 08/02/17 22:29 999 mls/hr STAT ONE Administration Sodium Chloride 10 ml 08/02/17 21:28 Saline Flush FLUSH ASDIRECTED PRN Keep Vein Open Sodium Chloride 2.5 ml 08/02/17 21:28 Saline Flush FLUSH ASDIRECTED PRN Keep Vein Open Discontinued Medications Generic Name Dose Route Start Last Admin Trade Name Freq PRN Reason Stop Dose Admin Ketorolac Tromethamine 30 mg 08/02/17 21:32 08/02/17 21:42 Toradol IVPUSH 08/02/17 21:33 30 mg ONETIME ONE Administration Morphine Sulfate 2 mg 08/02/17 21:30 Morphine IVPUSH 08/02/17 21:31 ONETIME ONE Ondansetron HCl 4 mg 08/02/17 21:30 08/02/17 21:42 Zofran IVPUSH 08/02/17 21:31 4 mg ONETIME ONE Administration Departure - Departure Time of Disposition: 21:50 Disposition: Home, Self-Care 01 Condition: Good Clinical Impression: Abdominal pain Qualifiers: Abdominal location: right upper quadrant Qualified Code(s): R10.11 - Right upper quadrant pain Vomiting Qualifiers: Vomiting type: unspecified Vomiting Intractability: non-intractable Nausea presence: with nausea Qualified Code(s): R11.2 - Nausea with vomiting, unspecified - Discharge Information Prescriptions: Famotidine [Pepcid] 20 mg PO BID #20 tab Ondansetron [Zofran ODT] 4 mg PO Q6H PRN #12 tab.dis PRN Reason: Nausea/Vomiting Instructions: Nausea and Vomiting, Adult Referrals: PCP,None [Primary Care Provider] - Forms: ED Department Discharge Additional Instructions: The following information is given to patients seen in the emergency department who are being discharged to home. This information is to outline your options for follow-up care. We provide all patients seen in our emergency department with a follow-up referral. The need for follow-up, as well as the timing and circumstances, are variable depending upon the specifics of your emergency department visit. If you don't have a primary care physician on staff, we will provide you with a referral. We always advise you to contact your personal physician following an emergency department visit to inform them of the circumstance of the visit and for follow-up with them and/or the need for any referrals to a consulting specialist. The emergency department will also refer you to a specialist when appropriate. This referral assures that you have the opportunity for followup care with a specialist. All of these measure are taken in an effort to provide you with optimal care, which includes your followup. Under all circumstances we always encourage you to contact your private physician who remains a resource for coordinating your care. When calling for followup care, please make the office aware that this follow-up is from your recent emergency room visit. If for any reason you are refused follow-up, please contact the [facility] emergency department at and asked to speak to the emergency department charge nurse. He has some right upper quadrant abdominal pain and nausea vomiting Recommended that he follow-up with surgical consult. Call for an appointment stating that you are in the emergency room [facility] Specialty [facility] - General Surgery Professional Building [address] [place] [address], [address] [place] [address] Prescriptions have been electronically sent to your pharmacy for Pepcid to reduce the acid in your stomach Zofran to take when you have nausea and vomiting - My Orders Last 24 Hours: My Active Orders 08/02/17 21:28 Sodium Chloride 0.9% [Saline Flush] 10 ml FLUSH ASDIRECTED PRN Sodium Chloride 0.9% [Saline Flush] 2.5 ml FLUSH ASDIRECTED PRN Saline Lock Insert [OM.PC] Stat 08/02/17 21:29 Chest 2V [CR] Stat Sodium Chloride 0.9% [Normal Saline] 1,000 ml IV STAT 08/02/17 21:31 Abdomen Ltd [US] Stat 08/02/17 21:35 CULTURE URINE [RM] Stat UA W/MICROSCOPIC [URIN] Stat 08/02/17 21:37 AMYLASE [CHEM] Stat COMPREHENSIVE METABOLIC PN,CMP [CHEM] Stat LIPASE [CHEM] Stat - Assessment/Plan Last 24 Hours: My Active Orders 08/02/17 21:28 Sodium Chloride 0.9% [Saline Flush] 10 ml FLUSH ASDIRECTED PRN Sodium Chloride 0.9% [Saline Flush] 2.5 ml FLUSH ASDIRECTED PRN Saline Lock Insert [OM.PC] Stat 08/02/17 21:29 Chest 2V [CR] Stat Sodium Chloride 0.9% [Normal Saline] 1,000 ml IV STAT 08/02/17 21:31 Abdomen Ltd [US] Stat 08/02/17 21:35 CULTURE URINE [RM] Stat UA W/MICROSCOPIC [URIN] Stat 08/02/17 21:37 AMYLASE [CHEM] Stat COMPREHENSIVE METABOLIC PN,CMP [CHEM] Stat LIPASE [CHEM] Stat
[2017-08-02 22:06] LABS: CHLORIDE,CL 102 mmol/L (98-107); SODIUM,NA 139 mmol/L (136-148)
[2017-08-02] MEDS ORDERED: Alum Hydrox/Mag Hydrox/Simeth 15 ML, Lidocaine 2% 5 ML PO ONE ×2 (22:41)
[2017-08-02 23:23] VITALS: BP 119/53
--- NOTE | 2017-08-03 10:46 | US ---
EXAM DATE: 08/02/17 PATIENT'S AGE: 26 Patient: MATTI ÁLVAREZ Facility: [place], [place] Site . Site : 1990 Study: US Abdomen Right RUQ-08/02/2017 10:32:53 PM Ordering Physician: Barbie Saez Final Report: INDICATION: Right upper quadrant abdomen pain TECHNIQUE: Ultrasound abdomen limited. Sonographic images of the right upper quadrant were obtained using patton-scale and color Doppler images. COMPARISON: CT abdomen pelvis July 12, 2016 FINDINGS: Liver: Normal in size and echotexture. No masses. No intrahepatic biliary dilatation. Gallbladder: No stones or sludge. Normal wall thickness. No pericholecystic fluid. Common bile duct: 2 mm. Pancreas: Obscured by bowel gas. Right kidney: Normal in size. Normal echotexture and cortex. No masses, stones, or hydronephrosis. Vasculature: Proximal abdominal aorta and IVC are normal. IMPRESSION: Unremarkable right upper quadrant ultrasound. Dictated by Rashi Larson MD @ 08/02/2017 10:56:39 PM Dictated by: Rashi Larson MD @ 08/02/2017 22:56:47 (Electronic Signature) Report Signed by Proxy. [facility]ITALSujata
--- NOTE | 2017-08-03 10:47 | CR ---
EXAM DATE: 08/02/17 PATIENT'S AGE: 26 Patient: MATTI ÁLVAREZ Facility: [place], [place] Site . Site : 1990 Study: XRay Chest [id number]/20/2018 10:39:39 PM Ordering Physician: Lissa Celis Final Report: INDICATION: Right upper quadrant pain. TECHNIQUE: Chest radiograph 2 views COMPARISON: 09/02/2015. FINDINGS: Cardiovascular and mediastinum: The heart silhouette is normal in size and morphology. The mediastinum is normal in appearance. Lungs and pleural spaces: Both lungs are unremarkable in appearance. No sign of pleural effusion seen. No pneumothorax is identified. Bones and soft tissues: No significant findings. IMPRESSION: 1. No acute cardiopulmonary disease is seen. Dictated by Sumit Busby MD @ 08/02/2017 11:11:00 PM Dictated by: Sumit Busby MD @ 08/02/2017 23:11:04 (Electronic Signature) Report Signed by Proxy. [facility]ISION[facility]
== END 2017-08-02 23:22 | disposition home or self-care (01) ==
LOC: MW.ED 21:05
DX: R10.11 Right upper quadrant pain (principal); R11.2 Nausea with vomiting, unspecified; Z79.899 Other long term (current) drug therapy; Z90.49 Acquired absence of other specified parts of digestive tract
CPT/HCPCS: 71046; 76705; 80053; 81001; 82150; 83690; 85025; 87086; 96374; 96375; 99284; A9270; J1885; J2405; J7040; 99283